=== PATIENT | female | born 1990 | race Caucasian/White ===

== ENCOUNTER → 2020-02-17 13:39 | Outpatient (BNVA) | payer SELFPAY | PROVIDERS: Visit Provider Nurse Practitioner Family | DX: N92.6 Irregular menstruation, unspecified (principal) | CPT/HCPCS: 81025; 84702 ==

== ENCOUNTER → 2021-12-28 13:47 | Outpatient (BNVA) | payer BC, SELFPAY | PROVIDERS: Visit Provider Nurse Practitioner Family | DX: N92.6 Irregular menstruation, unspecified (principal) | CPT/HCPCS: 81025 ==

== ENCOUNTER → 2022-03-07 09:11 | Outpatient (BNVA) | payer BC, MEDICAID, SELFPAY | PROVIDERS: Visit Provider Obstetrics & Gynecology | DX: O21.9 Vomiting of pregnancy, unspecified (principal); O09.899 Supervision of other high risk pregnancies, unspecified trimester; Z3A.00 Weeks of gestation of pregnancy not specified | CPT/HCPCS: 80307; 81000; 82950; 84443; 85025; 86592; 86762; 86803; 86850; 86900; 87086; 87340 ==

== ENCOUNTER → 2022-03-24 10:30 | Outpatient (BNVA) | payer BC, MEDICAID, SELFPAY | PROVIDERS: Visit Provider Obstetrics & Gynecology | DX: O09.899 Supervision of other high risk pregnancies, unspecified trimester (principal); Z3A.00 Weeks of gestation of pregnancy not specified | CPT/HCPCS: 81000; 87491; 87591; 87624; 87661 ==

== ENCOUNTER → 2022-04-11 13:12 | Outpatient (BNVA) | payer BC, MEDICAID, SELFPAY | PROVIDERS: Visit Provider Obstetrics & Gynecology | DX: O09.899 Supervision of other high risk pregnancies, unspecified trimester (principal) | CPT/HCPCS: 81000 ==

== ENCOUNTER → 2022-05-02 09:06 | Outpatient (BNVA) | payer BC, MEDICAID, SELFPAY | PROVIDERS: Visit Provider Obstetrics & Gynecology | DX: O09.899 Supervision of other high risk pregnancies, unspecified trimester (principal); Z3A.00 Weeks of gestation of pregnancy not specified | CPT/HCPCS: 81000 ==

== ENCOUNTER → 2022-05-23 14:47 | Outpatient (BNVA) | payer BC, MEDICAID, SELFPAY | PROVIDERS: Visit Provider Obstetrics & Gynecology | DX: O09.899 Supervision of other high risk pregnancies, unspecified trimester (principal); Z3A.00 Weeks of gestation of pregnancy not specified | CPT/HCPCS: 81000 ==

== ENCOUNTER → 2022-06-27 08:38 | Outpatient (BNVA) | payer BC, MEDICAID, SELFPAY | PROVIDERS: Visit Provider Obstetrics & Gynecology | DX: O09.899 Supervision of other high risk pregnancies, unspecified trimester (principal); Z3A.00 Weeks of gestation of pregnancy not specified | CPT/HCPCS: 81000 ==

== ENCOUNTER 2022-07-22 10:02 | Outpatient (CLI) | payer BC, MEDICAID, SELFPAY ==
[2022-07-22 10:02] VITALS: BMI 30.2
[2022-07-22 10:39] VITALS: BP 110/55; PULSE 94
[2022-07-22 10:53] VITALS: BP 110/57; PULSE 90
== END 2022-07-22 11:09 | disposition home or self-care (01) ==
LOC: OPOB 10:04 → OBGYN 10:11
PROVIDERS: Visit Provider Obstetrics & Gynecology
DX: O26.899 Other specified pregnancy related conditions, unspecified trimester (principal); Z3A.00 Weeks of gestation of pregnancy not specified; R52 Pain, unspecified
CPT/HCPCS: 59025; 83986; 99211

== ENCOUNTER → 2022-07-25 10:00 | Outpatient (BNVA) | payer BC, MEDICAID, SELFPAY | PROVIDERS: Visit Provider Obstetrics & Gynecology | DX: O09.899 Supervision of other high risk pregnancies, unspecified trimester (principal); Z3A.00 Weeks of gestation of pregnancy not specified | CPT/HCPCS: 81000; 82950; 85025 ==

== ENCOUNTER 2022-08-08 10:16 | Outpatient (CLI) | payer BC, MEDICAID, SELFPAY ==
[2022-08-08 10:27] VITALS: BP 131/71; PULSE 83
[2022-08-08 10:31] VITALS: BMI 32.1
--- NOTE | 2022-08-08 10:38 | US_ITS ---
WS: [id number] OB ultrasound for biophysical profile, 08/08/2022 Clinical Data: Decreased Movement Comparison: OB ultrasound, 07/25/2022 Findings: There is a single intrauterine in the vertex presentation. The heart rate is 133 beat s per minute. The cervix is closed. The placenta is anterior. The YOLY is 15.57 cm. The biophysical profile is 8 of 8 with normal scores for breathing, movement, posture and tone and amniotic fluid volume. US/US OB [facility] wo [place] [address]24 Impression: 1. Single intrauterine in vertex presentation. 2. Biophysical profile 8 of 8. 3. heart rate 133 beats per minute.
[2022-08-08 10:42] VITALS: BP 122/67; PULSE 92
[2022-08-08] MEDS: dextrose 5%-lactated ringers 1,000 ML 999 ML IV (10:52)
[2022-08-08 10:57] VITALS: BP 120/64; PULSE 90
[2022-08-08 12:20] VITALS: BP 120/64; PULSE 90; RESP 17; TEMP 36.6
== END 2022-08-08 12:25 | disposition home or self-care (01) ==
LOC: OPOB 10:19 → OBGYN 10:20
PROVIDERS: Visit Provider Obstetrics & Gynecology
DX: O26.899 Other specified pregnancy related conditions, unspecified trimester (principal); Z3A.00 Weeks of gestation of pregnancy not specified; N89.8 Other specified noninflammatory disorders of vagina
CPT/HCPCS: 59025; 76819; 81000; 99211; J7121

== ENCOUNTER → 2022-08-22 13:30 | Outpatient (BNVA) | payer BC, MEDICAID, SELFPAY | PROVIDERS: Visit Provider Obstetrics & Gynecology | DX: O09.899 Supervision of other high risk pregnancies, unspecified trimester (principal); R82.90 Unspecified abnormal findings in urine; Z3A.00 Weeks of gestation of pregnancy not specified | CPT/HCPCS: 81000; 87086 ==

== ENCOUNTER → 2022-09-05 10:00 | Outpatient (BNVA) | payer BC, MEDICAID, SELFPAY | PROVIDERS: Visit Provider Obstetrics & Gynecology | DX: O09.299 Supervision of pregnancy with other poor reproductive or obstetric history, unspecified trimester (principal); O09.899 Supervision of other high risk pregnancies, unspecified trimester; Z3A.00 Weeks of gestation of pregnancy not specified | CPT/HCPCS: 81000; 85025; 87086 ==

== ENCOUNTER → 2022-09-12 09:00 | Outpatient (BNVA) | payer BC, MEDICAID, SELFPAY | PROVIDERS: Visit Provider Obstetrics & Gynecology | DX: O09.899 Supervision of other high risk pregnancies, unspecified trimester (principal); Z3A.00 Weeks of gestation of pregnancy not specified | CPT/HCPCS: 81000; 87081 ==

== ENCOUNTER 2022-09-16 17:32 | Outpatient (CLI) | payer BC, MEDICAID, SELFPAY ==
[2022-09-16] VITALS (7 sets, daily range): BP systolic 114–134; BP diastolic 59–68; PULSE 76–85; BMI 32.8
[2022-09-16 19:04] LABS: Actim Prom Negative
== END 2022-09-16 19:15 | disposition home or self-care (01) ==
LOC: OPOB 17:43 → OBGYN 17:45
PROVIDERS: Visit Provider Obstetrics & Gynecology
DX: O26.899 Other specified pregnancy related conditions, unspecified trimester (principal); Z3A.00 Weeks of gestation of pregnancy not specified; N89.8 Other specified noninflammatory disorders of vagina
CPT/HCPCS: 59025; 83986; 84112; 99211

== ENCOUNTER → 2022-09-19 08:00 | Outpatient (BNVA) | payer BC, MEDICAID, SELFPAY | PROVIDERS: Visit Provider Obstetrics & Gynecology | DX: O09.899 Supervision of other high risk pregnancies, unspecified trimester (principal); Z3A.00 Weeks of gestation of pregnancy not specified | CPT/HCPCS: 81000 ==

== ENCOUNTER 2022-09-23 13:12 | Outpatient (CLI) | payer BC, MEDICAID, SELFPAY ==
[2022-09-23 13:26] VITALS: BMI 32.8
[2022-09-23 13:32] VITALS: TEMP 36.4
[2022-09-23 13:33] VITALS: BP 123/78; PULSE 95
[2022-09-23 14:31] LABS: Add Urine Culture? Yes; Bilirubin Urine Neg (Negative); Blood Urine 3+ (Negative); Glucose Urine UA Norm (Normal); Ketones Urine 2+ (Negative); Leukocyte Esterase Urine Negative (Negative); Mucus Urine TRACE /hpf; Nitrate Urine Negative (Negative); Protein Urine Neg (Negative); RBC Urine 80-100 /hpf (0-2); Specific Gravity, Urine 1.015 (1.005-1.030); Squamous Epithelial Cell Urine 0-4 /hpf (0-5); Urine Appearance Cloudy (CLEAR); Urine Color Yellow (Yellow); Urobilinogen Urine Norm (Negative); WBC Urine 0-4 /hpf (0-5); pH Urine 7 (5-7)
[2022-09-23 15:24] VITALS: BP 134/75; PULSE 82
[2022-09-23 16:20] VITALS: BP 134/75; PULSE 82
== END 2022-09-23 16:20 | disposition home or self-care (01) ==
LOC: OPOB 13:17 → OBGYN 13:19
PROVIDERS: Visit Provider Obstetrics & Gynecology
DX: O26.899 Other specified pregnancy related conditions, unspecified trimester (principal); Z3A.00 Weeks of gestation of pregnancy not specified; M54.9 Dorsalgia, unspecified
CPT/HCPCS: 59025; 81001; 87086; 99211

== ENCOUNTER → 2022-09-30 09:25 | Outpatient (BNVA) | payer BC, MEDICAID, SELFPAY | PROVIDERS: Visit Provider Obstetrics & Gynecology | DX: O09.899 Supervision of other high risk pregnancies, unspecified trimester (principal); Z3A.00 Weeks of gestation of pregnancy not specified | CPT/HCPCS: 81000 ==

== ENCOUNTER 2022-10-05 20:11 | Inpatient (IN) | payer BC, MEDICAID, SELFPAY ==
[2022-09-23 15:24] VITALS: PULSE 82
[2022-10-05] VITALS (11 sets, daily range): BP systolic 111–127; BP diastolic 58–76; PULSE 72–80; TEMP 36.1; BMI 32.8
[2022-10-05 21:22] LABS: Basophils % 0.4 %; Eosinophils # 0.1 10^3/uL (0.0-0.8); Eosinophils % 0.6 %; Hematocrit 35.3 % (37.0-47.0); Hemoglobin 11.5 g/dL (11.5-15.3); Lymphocytes # 2.1 10^3/uL (0.8-4.8); Lymphocytes % 19.1 %; Mean Corpuscular HGB Conc 32.6 g/dL (30.0-36.0); Mean Corpuscular Hemoglobin 27.3 pg (28.0-34.0); Mean Corpuscular Volume 83.8 fl (81-99); Mean Platelet Volume 10.9 fL (7.4-10.4); Monocytes # 0.6 10^3/uL (0.2-0.9); Monocytes % 5.4 %; Neutrophils # 8.13 10^3/uL (1.8-7.7); Neutrophils % 73.8 %; Nucleated Red Blood Cells % 0 %; Platelet Count 208 10^3/cmm (130-400); Red Blood Count 4.21 10^6/uL (4.1-5.3); Red Cell Distribution Width 12.8 % (12.1-15.1)
[2022-10-05] MEDS: dextrose 5%-lactated ringers 1,000 ML 125 ML IV (21:49)
[2022-10-05] MEDS: oxytocin 30 UNIT/500 ML BAG IV (21:50)
[2022-10-06] VITALS (80 sets, daily range): BP systolic 105–133; BP diastolic 57–86; PULSE 63–105; RESP 15–18; TEMP 35.8–36.9; O2SAT 97–100
[2022-10-06] MEDS: lactated ringers 1,000 ML 999 ML IV ×2 (00:49→01:53)
--- NOTE | 2022-10-06 01:40 | ANES.PREANE2 ---
Pre-Anesthetic Assessment Height/Weight: Height 1.65 m Weight 89.358 kg Temp Pulse BP Pulse Ox O2 Del Method 97.0 F L 86 118/72 99 10/05/22 20:18 10/06/22 01:38 10/06/22 01:38 10/06/22 01:36 10/05/22 19:55 Preop Diagnosis: IUP Labor Epidural Familial anesthetic complications: None Was Beta Sharifa taken within 24 hours: N/A Was Clonidine taken within 24 hours: N/A Last intake: Liquid: 1800 Solid: 1200 Social No alcohol and No tobacco Exam alert, oriented x 3, clear to auscultation bilaterally and regular rate & rhythm Airway Submandibular: within normal limits Cervical ROM: within normal limits Mallampati: Class II Dentition: full History/ROS No significant history except as noted Pulmonary None reported CV/HEM None reported None reported Hepatic None reported GI None reported Metabolic Morbid Obesity Musc/skel None reported Neuropsych None reported Anesthetic Plan ASA status: 2 Anesthesia: Anesthesia Evaluation and Regional (specify below) Risk of > 500 ml blood loss (7ml/kg in children): No Medications/Allergies Home Medications Medication Instructions Recorded Confirmed Last Taken Type PNV 153-FA 400 mcg-om3 35 mg-dha tab PO 03/07/22 09/30/22 08/08/22 07:00 History 25 mg-epa 5 mg-fish oil chew tablet ( Gummies) Allergies Allergy/AdvReac Type Severity Reaction Status Date / Time No Known Allergies Allergy Verified 09/30/22 08:28 Current Medications Generic Name Dose Route Start Last Admin Trade Name Tylerq PRN Reason Stop Dose Admin Dextrose/Lactated Ringer's 1,000 mls @ 125 mls/hr 10/05/22 21:00 10/05/22 21:49 Dextrose 5%-Lactated Ringers IV 125 mls/hr .Q8H JAMES Administration Oxytocin 30 unit in 500 mls @ 1 mls/hr 10/05/22 21:30 10/05/22 23:30 Pitocin IV 5 milliunit/min .Q24H JAMES 5 mls/hr Titration Protocol 1 MILLIUNIT/MIN Lactated Ringer's 1,000 mls @ 999 mls/hr 10/06/22 00:33 10/06/22 00:49 Lactated Ringers IV 999 mls/hr .Q1H1M PRN Administration See label comments PFSH Anesthesia Medical History No pertinent past medical history neghx: htn, dm, thyroid, dvt/pe PCP: Dr. Root Surgical History No pertinent past surgical history Family History Mother Hypertension Denies family history of Colon cancer Ovarian cancer Diabetes Heart disease Hypercholesteremia Breast cancer Uterine cancer Thyroid disease Stroke Social History Smoking and tobacco status: current some day smoker Female Reproductive History Date of last menstrual period: 12/28/21 : 4 Data Anesthesia 10/05/22 21:10 Short CBC 10/05/22 Range/Units 21:10 WBC 11.0 H (4.0-10.0) 10^3/uL Hgb 11.5 (11.5-15.3) g/dL Hct 35.3 L (37.0-47.0) % MCV 83.8 (81-99) fl Plt Count 208 (130-400) 10^3/cmm Neut % (Auto) 73.8 % Neut # (Auto) 8.13 H (1.8-7.7) 10^3/uL Cardiac Studies: No Data to Display
--- NOTE | 2022-10-06 02:12 | ANES.PROC ---
Anesthesia Procedures Procedure/Date: 10/06/22 Epidural Epidural: Time Out Performed: Yes Consents Signed: Procedure Consent Consent: requested by attending/covering physician, from patient, risks and benefits reviewed and patient agrees to proceed Lumbar Level: L4-L5 Epidural position: sitting Epidural procedure: sterile prep of area, 1% lidocaine to numb the area, 18 g needle, negative for paresthesia passed, neg for paresthesia, test dose given, 1.5% xylocaine 1:200k epi, placed PCEA, no systemic response, sterile dressing applied, L.U.D. no apparent complications and 0.2% Ropiavacaine @ mls/hr (13) Additional Comments: JACOB 5cm
--- NOTE | 2022-10-06 05:58 | PM.OPHPUD ---
Labor & Delivery H&P Update Date of Procedure: October 06, 2022 Date H&P Performed: 09/30/22 H&P update information: I have reviewed H&P completed within last 30 days, I have examined patient prior to procedure and No changes to prior documentation Admission Diagnosis: Preop diagnosis: IUP Related Problem List Diagnoses (1) Sterilization consult: (2) History of macrosomia in infant in prior , currently : (3) Supervision of other high risk , antepartum: (4) BMI greater than 30:
[2022-10-06] MEDS: oxytocin 30 UNIT/500 ML BAG 600 UNIT IV (07:27)
--- NOTE | 2022-10-06 08:06 | PM.DELIVERY ---
Delivery Note: Date of delivery: October 06, 2022 Pre-delivery diagnoses: iup@[id number], history of macrosomia Post-delivery diagnoses: same, delivered Procedure: Delivering Physician: tyrese Estimated blood loss (mL): 250 Findings: term female in the MARIAH presentation with a brief shoulder dystocia relieved with Dannielle Manuever Pre-Delivery Course: The patient was admitted for induction of labor at term. Pitocin was begun. She received an epidural for pain management. She had AROM to augment the labor. She had complete cervical dilation and began pushing. Delivery: The patient had complete cervical dilation and began to push. The head delivered in the MARIAH position over an intact perineum under epidural anesthesia. There was an immediate turtle sign. Dannielle maneuver was performed and the anterior shoulder delivered, followed by the posterior shoulder and body. The baby was placed onto the mother's abdomen. The nose and mouth were bulb suctioned. The cord was clamped and cut. Cord blood was obtained. The placenta delivered spontaneously. It was inspected and found to be intact. Inspection of the perineum revealed a small second-degree perineal laceration. This was repaired in the usual fashion. Estimated blood loss 250 mL. Apgars on baby were 3 at 1 minute and 8 at 5 minutes, 9 at 10 minutes. Weight of baby is 7 pounds 14 ounces. Mother and baby were stable post delivery. History History History 4 Term 3 0 Miscarriages/Ectopic 0 Living Children 3 Coding Level of Care Code Acute Financial Sales Advisor for Jaron Cyr
[2022-10-06] MEDS: prenatal vitamin Capsule 1 CAP PO (08:43)
[2022-10-06] MEDS: ibuprofen 800 mg tablet PO ×3 (08:43→20:38)
[2022-10-06] MEDS: benzocaine-menthol 78 gm Canister 1 SPRAY TOPICAL (08:43)
[2022-10-06] MEDS: lanolin oint 7 gm 1 APPLIC TOPICAL (08:43)
[2022-10-06] MEDS: docusate sodium 100 mg Capsule PO ×2 (08:43→17:23)
[2022-10-06] MEDS: HYDROcodone-acetaminophen 5-325 mg Tablet PO ×2 (11:12→17:23)
--- NOTE | 2022-10-06 14:49 | ANE.PACU2 ---
Inpatient post-anesthesia follow up: Airway intact: Yes Vital signs: Temperature 98.5 F Pulse Rate 79 Respiratory Rate 18 Blood Pressure 122/58 Pulse Oximetry 99 Oxygen Delivery Me thod Room Air Oxygen Flow Rate Fraction of Inspir ed Oxygen Hydration adequate: Yes Nausea and vomiting: No Pain level: 2 Mental status: Baseline
[2022-10-06 20:13] LABS: Hematocrit 30.6 % (37.0-47.0); Hemoglobin 9.8 g/dL (11.5-15.3); Mean Corpuscular Volume 84.3 fl (81-99); Mean Platelet Volume 10.8 fL (7.4-10.4); Platelet Count 187 10^3/cmm (130-400); Red Blood Count 3.63 10^6/uL (4.1-5.3); Red Cell Distribution Width 12.7 % (12.1-15.1); White Blood Count 11.2 10^3/uL (4.0-10.0)
[2022-10-07] VITALS (15 sets, daily range): BP systolic 102–130; BP diastolic 56–91; PULSE 70–103; RESP 15–17; TEMP 36.6–36.8; O2SAT 96–98
[2022-10-07] MEDS: HYDROcodone-acetaminophen 5-325 mg Tablet PO ×3 (01:11→14:01)
[2022-10-07] MEDS: lactated ringers 1,000 ML 999 ML IV (07:05)
[2022-10-07] MEDS: metoclopramide 5 mg/mL SDV 2 mL 10 MG IVP (07:54)
[2022-10-07] MEDS: famotidine 20 mg/2 mL INJ IVP (07:54)
[2022-10-07] MEDS: citric acid-sodium citrate 30 mL UDC PO (07:54)
--- NOTE | 2022-10-07 08:00 | ANES.PAUD2 ---
Documented by User: Yas Jimenez CRNA 10/07/22 08:01 Pre-Anesthetic Update Pre-Anesthetic Assessment: Date of Surgery/Procedure: 10/07/22 Preop Diagnosis: desires sterilization Proposed Procedure: Operation Date: 10/07/22 08:10 Proposed Procedures p Post Bilateral Tubal Ligation(Bilateral) - Marialuisa Shepard, DO Any changes to Pre-Anesthetic Assessment?: No Labs Last 48hrs: Short CBC 10/05/22 10/06/22 Range/Units 21:10 19:45 WBC 11.0 H 11.2 H (4.0-10.0) 10^3/ uL Hgb 11.5 9.8 L (11.5-15.3) g/dL Hct 35.3 L 30.6 L (37.0-47.0) % MCV 83.8 84.3 (81-99) fl Plt Count 208 187 (130-400) 10^3/c mm Neut % (Auto) 73.8 % Neut # (Auto) 8.13 H (1.8-7.7) 10^3/u L Vitals: Temperature 98.2 F 10/07/22 04:30 Temperature Source Oral 10/07/22 04:30 Pulse Rate 73 10/07/22 04:30 Respiratory Rate 15 10/07/22 04:30 Respiratory Effort Non-Labored 10/05/22 19:55 Respiratory Depth Normal 10/05/22 19:55 Respiratory Patter n 10/05/22 19:55 Blood Pressure 117/71 10/07/22 04:30 Blood Pressure Janet n 86 10/07/22 04:30 Blood Pressure Pos ition Semi Fowlers 10/07/22 04:30 Pulse Oximetry 97 10/07/22 04:30 Oxygen Delivery Me thod 10/07/22 04:30 Exam: Pre-Anes Outpt Exam: alert and oriented x 3 Cardiac Studies: No Data to Display Documented by User: Jus Hilton 10/07/22 13:01 Pre-Anesthetic Update Pre-Anesthetic Assessment: Date of Surgery/Procedure: 10/07/22 Cardiac Studies: No Data to Display
--- NOTE | 2022-10-07 09:31 | PM.OP ---
Operative Report Date of procedure: October 07, 2022 Pre-op diagnosis: Preop Diagnosis desires sterilization Post-op diagnosis: same Post-op findings: Normal pelvis, normal tubes and ovaries. Procedure done: Bilateral laparoscopic fimbriectomy Specimens removed/disposition: Partial tubal site tubal segments right and left Surgeon: Marialuisa Shepard DO Anesthesia: Nerve Block Estimated blood loss (mL): 5 IV fluids: See anesthesia report Urine output: none Complications: None Condition: stable Disposition: floor Brief History: 32-year-old female G4, P4 s/p . Requesting elective sterilization by tubal ligation. Patient was seen, risk and benefits reviewed risk of bleeding, infection, failure of procedure resulting in ectopic or intrauterine . Consent signed and reviewed. Procedure: Patient was transported to surgical suite placed in sitting position spinal anesthetic placed without difficulty. Patient was repositioned in supine position and abdomen prepped and draped in the standard fashion. Skin testing performed with an adequate level noted. A small 2 cm incision made in the infraumbilical fold and extended to the peritoneum. The peritoneum was opened a sponge stick used to manipulate the omentum away from the uterus. The left fallopian tube was visualized grasped with a Xiomy instrument and changed to its fimbriated end. A total 3 cm segment of the tube was clamped with a hemostat including the fimbria. The segment was suture-ligated with 0 chromic x2, excised and the tubal stump cauterized using the Bovie. The same procedure was done on the left tube both segments handed off and will be sent to pathology. Both sides were hemostatically intact. The sponge stick was removed from the incision the peritoneum closed with 2-0 Vicryl and the skin closed with 4-0 Vicryl in a subcuticular stitch. Needle instrument sponge counts correct x2. 2% lidocaine with epi was infiltrated around the incisional area. The incision cleansed and bandage applied. Patient is awakened in stable and satisfactory condition. Patient will be transported back to her room for recovery.
[2022-10-07] MEDS: ibuprofen 800 mg tablet PO ×2 (09:43→15:10)
--- NOTE | 2022-10-07 10:38 | PC.NURSE ---
PT in OR
--- NOTE | 2022-10-07 13:01 | ANE.PACU2 ---
Inpatient post-anesthesia follow up: Airway intact: Yes Vital signs: Temperature 97.9 F Pulse Rate 73 Respiratory Rate 17 Blood Pressure 116/56 Pulse Oximetry 98 Oxygen Delivery Me thod Room Air Oxygen Flow Rate Fraction of Inspir ed Oxygen Hydration adequate: Yes Nausea and vomiting: No Pain level: 2 Mental status: Baseline
--- NOTE | 2022-10-08 10:08 | P.DS_ITS ---
Discharge Providers DIABETES EDUCATION COORDINATOR Date of Admission: 10/05/22 20:11 Date of Discharge: 10/07/22 Attending Provider at Admission: Tawnya Beaver MD Attending Provider at Discharge: Tawnya Beaver MD Diagnoses at Discharge Discharge Diagnosis (1) Sterilization consult: Status: Acute (2) History of macrosomia in in prior , currently : Details from hospital stay: 32-year-old female G4, P4 s/p and bilateral tubal ligation. Patient's delivery as well as postop course uneventful. Patient was tolerating regular diet, voiding and caring for her infant without assistance. Oral pain medicine was managing patient's postop pain. Patient understands Percocet 5/325 #4 by prescription will be given, when medication is completed patient has been counseled on using Tylenol or ibuprofen for pain management if needed. Status: Acute (3) Supervision of other high risk , antepartum: Status: Acute (4) BMI greater than 30: Status: Acute Reason for Visit Reason for Visit: scheduled IOL Information Peripartum Data: Infant Delivery Method: Vaginal Physical Exam Urinary Catheter Management: Allan: Cath Placed During This Visit: yes, but has since been removed by the nurse Reason for Continuing Indwelling Catheter: Does Not Meet Criteria Urinary Catheter Date of Insertion: 10/06/22 Urinary Catheter Time of Insertion: 03:48 Date Urinary Catheter Removed: 10/06/22 Time Urinary Catheter Discontinued: 07:22 History History History 4 Term 3 0 Miscarriages/Ectopic 0 Living Children 3 Discharge Data Studies Completed and Pending Pending at discharge Category Date Time Status Pathology: Surgical [PTH] Routine Pth 10/07/22 09:14 Received Laboratory Results WBC 11.2 10^3/uL (4.0-10.0) H 10/06/22 19:45 RBC 3.63 10^6/uL (4.1-5.3) L 10/06/22 19:45 Hgb 9.8 g/dL (11.5-15.3) L 10/06/22 19:45 Hct 30.6 % (37.0-47.0) L 10/06/22 19:45 MCV 84.3 fl (81-99) 10/06/22 19:45 MCH 27.0 pg (28.0-34.0) L 10/06/22 19:45 MCHC 32.0 g/dL (30.0-36.0) 10/06/22 19:45 RDW 12.7 % (12.1-15.1) 10/06/22 19:45 Plt Count 187 10^3/cmm (130-400) 10/06/22 19:45 MPV 10.8 fL (7.4-10.4) H 10/06/22 19:45 Neut % (Auto) 73.8 % 10/05/22 21:10 Lymph % (Auto) 19.1 % 10/05/22 21:10 Vigo % (Auto) 5.4 % 10/05/22 21:10 Eos % (Auto) 0.6 % 10/05/22 21:10 Baso % (Auto) 0.4 % 10/05/22 21:10 Neut # (Auto) 8.13 10^3/uL (1.8-7.7) H 10/05/22 21:10 Lymph # (Auto) 2.1 10^3/uL (0.8-4.8) 10/05/22 21:10 Vigo # (Auto) 0.6 10^3/uL (0.2-0.9) 10/05/22 21:10 Eos # (Auto) 0.1 10^3/uL (0.0-0.8) 10/05/22 21:10 Baso # (Auto) 0.0 10^3/uL (0.0-0.1) 10/05/22 21:10 Nucleated RBC % (auto) 0 % 10/05/22 21:10 Nucleated RBCs # 0.0 /100WBC 10/05/22 21:10 Procedures Performed 1. 2. tubal ligation Vitals Last Vital Signs Temp 98.3 F 10/07/22 16:05 Pulse 103 H 10/07/22 16:05 Resp 17 10/07/22 16:05 BP 130/91 10/07/22 16:05 Pulse Ox 97 10/07/22 11:43 O2 Del Method 10/07/22 11:43 Discharge Plan Discharge Patient Disposition: Home Condition: Stable Prescriptions: Continued Gummies 400 mcg-35 mg- 25 mg-5 mg tablet,chewable PO Discharge Orders: Discharge Order (Routine); Ordered 10/07/22 Ordered By: Marialuisa Shepadr Referrals: Tawnya Beaver MD [Physician] - 10/12/22 1:15 pm (* Your 1 week incision check is on 10/12/2022 at 1:15pm * Your 6 week appointment is on 11/17/2022 at 1:30pm) Discharge Diet: Regular Discharge Activity: Resume usual activity and Increase activity as tolerated Patient Instructions: Depression (DC), Bleeding (DC), Preeclampsia and Eclampsia After Delivery (GEN), Tubal Ligation (DC), OB Discharge Report, OB Anesthesia Instructions, OB Food/Drug Interaction Guide, Opioid Safety, OB Home Care, OB Proud Parent Packet, OB Vaginal Deliveries - [facility] Activity Restrictions/Additional Instructions: Pelvic rest x6 weeks Assessment: 1. S/p 2. S/p tubal ligation Plan of Treatment: 1. Discharge patient to home follow-up 1 [address] Beaver for postop and visit. Discharge Attestations DIABETES EDUCATION COORDINATOR Time Spent in Discharge Care*: less than 30 min Coding Level of Care Code Acute Cable Testers Helper for Chg Fwd Diagnoses Sterilization consult Z30.09 History of macrosomia in in prior , currently O09.299 Supervision of other high risk , antepartum O09.899 BMI greater than 30
== END 2022-10-07 16:05 | disposition home or self-care (01) | DRG 798 ==
LOC: OPOB 20:13 → OBGYN 20:13
PROVIDERS: Obstetrics & Gynecology; Admitting Provider Obstetrics & Gynecology; Visit Provider Obstetrics & Gynecology
PROC: 0UB70ZZ Excision of Bilateral Fallopian Tubes, Open Approach (ICD-10-PCS; CPT 58605; principal; 2022-10-07 08:00)
DX: O66.0 Obstructed labor due to shoulder dystocia (principal); Z37.0 Single live birth; O99.334 Smoking (tobacco) complicating childbirth; O70.1 Second degree perineal laceration during delivery; Z3A.39 39 weeks gestation of pregnancy
CPT/HCPCS: 12345; 36415; 51702; 59025; 59409; 85025; 85027; 88302; 96374; J2590; J2765; J2795; J3490; J7120; J7121

== ENCOUNTER → 2025-09-22 08:00 | Outpatient (BNVA) | payer BC, MEDICAID, SELFPAY | PROVIDERS: PCP Family Medicine; Visit Provider Family Medicine | DX: E55.9 Vitamin D deficiency, unspecified (principal); G43.909 Migraine, unspecified, not intractable, without status migrainosus; E66.9 Obesity, unspecified; Z68.32 Body mass index [BMI] 32.0-32.9, adult; R53.82 Chronic fatigue, unspecified; R79.89 Other specified abnormal findings of blood chemistry | CPT/HCPCS: 80053; 80061; 82306; 82607; 84439; 84443; 85025 ==